=== PATIENT | female | born 1960 | race Caucasian/White ===

== ENCOUNTER 2018-08-21 05:17 | Inpatient (IN) | payer OTHER ==
[~2018-08-21] VITALS: Ht 157.5 cm; Wt 5.0 kg
[~2018-08-21 05:17] MED LIST: FOSAM PO
[2018-08-22] MEDS ORDERED: PERCOCET 5-3251 EACH PO (09:40)
[2018-08-22] MEDS ORDERED: SYNTHROID75 MCG PO (09:43)
== END 2018-08-22 12:42 | disposition home or self-care (01) | DRG 627 ==
LOC: CIR.AMB 05:17 → SURG 10:25 → O/R 10:25 → SURG 14:15
PROVIDERS: ADMIT Surgery
PROC: 0GTK0ZZ Resection of Thyroid Gland, Open Approach (ICD-10-PCS; principal; 2018-08-21 07:00)
DX: C73 Malignant neoplasm of thyroid gland (principal)